=== PATIENT | female | born 1995 | race Caucasian/White ===

== ENCOUNTER 2024-06-26 19:27 | Inpatient (IN) ==
[2024-06-26 19:37] VITALS: BP 131/85; PULSE 78
[2024-06-26 19:55] VITALS: RESP 18; TEMP 98.4
--- NOTE | 2024-06-26 20:26 | Procedure Note ---
Procedure Note Date of Service June 26, 2024 monitoring was used to ensure reassuring status. The patient was verbally consented for placement of a la for cervical ripening, with discussion of risks, benefits and alternatives. All her questions were answered. Her legs were placed in lithotomy position. A lubricated, gloved hand was used to examine the cervix which was . A stylet was lubricated and inserted into a la catheter to give it stiffness, and the la catheter was then advanced along my fingers until it reached the external cervical os. The la was then fed forward off of the stylet, which was itself never moved beyond the external os, such that the soft catheter advanced into the uterine cavity outside of the amnion until the balloon was definitely above the internal cervical os. The balloon was then inflated using sterile water to 30cc volume. Gentle traction was used to seat the balloon downward against the internal cervical os. My hand and the stylet were removed from the vagina, and the la was secured to the patient's leg with a standard la holding sticker. There was no significant bleeding or leakage of fluid. The heart tones remained reassuring after this process, which the patient tolerated well. Coding Additional Codes Date of Service ([email or web address])
== END 2024-06-26 20:49 | disposition home or self-care (01) | DRG 833 ==
LOC: 4S1 19:27

== ENCOUNTER 2024-06-27 07:48 | Inpatient (IN) ==
[2024-06-27] MEDS ORDERED: OXYTOCIN 30 UNITS/NSS 30 UNITS/500 ML BAG IV PRN (07:59)
[2024-06-27] MEDS ORDERED: LIDOCAINE 1% LOCAL 20 ML VIAL INFIL PRN (07:59)
[2024-06-27] MEDS ORDERED: CALCIUM CARBONATE 500 MG CHEWABLE TAB PO PRN (07:59)
[2024-06-27 08:22] LABS: Hematocrit (blood only) 39.2 % (37.0-47.0); Hemoglobin 13.1 g/dl (12.0-16.0); Mean Corpuscular Hgb Conc 33.4 g/dL (32.0-36.0); Mean Corpuscular Volume 89.9 fL (80.0-100.0); Mean Platelet Volume 11.4 fL (9.4-12.4); Platelet Count 224 K/uL (130-400); RDW Coefficient of Variation 13.4 % (11.5-14.5); RDW Standard Deviation 43.8 fL (36.4-46.3); Red Blood Count 4.36 M/uL (4.20-5.40); White Blood Count 12.78 K/ul (4.8-10.8)
[2024-06-27] MEDS: LACTATED RINGER'S 1,000 ML IV PRN (08:30)
--- NOTE | 2024-06-27 08:31 | History & Physical Report ---
Date of Service June 27, 2024 Assessment & Plan (1) Encounter for induction of labor: Plan: la out Pitocin 30u in 500mL, 0.06u/hr for induction AROM when indicated Interested in epidural Monitor tracing, category I Admission and Anticipated Discharge Date Admission Date: June 27, 2024 History of Present Illness Chief Complaint: induction of labor Primary Care Provider: Kiley Manning MD Patient is a 28yo at 40w1d admitted for IOL for postdates. La bulb placed yesterday, fell out spontaneously this AM. Endorses feeling well but having about 5/10 abdominal pain which comes and goes with contractions. Denies recent fever, body aches, chills, headache, vision changes, dizziness, nausea/vomiting, CP, SOB, or LE pain, no LE numbness/tingling GBS neg, Rh+ Allergies Allergy/AdvReac Type Severity Reaction Status Date / Time No Known Allergies Allergy Verified 06/27/24 08:53 Home Medications Medication Instructions Recorded Confirmed Type breast pump #1 ea 06/09/24 06/21/24 Rx vits no.124-ferrous fum 1 tab PO DAILY 06/27/24 06/27/24 History 27 mg iron-folic acid 800 mcg tablet ( Vitamin) Patient History Medical History Seasonal allergies Varicella vaccine Surgical History [place] teeth extracted Family History Father Synovial sarcoma Denies family history of Ovarian cancer Prostate cancer Diabetes Myocardial infarction Breast cancer Colorectal cancer Hypertension Social History Smoking Status: Never smoker Second Hand Exposure: No; Do You Dip or Chew Tobacco: No; Hx Alcohol Use: Yes Alcohol Intake Frequency: Monthly or Less Hx Substance Use: No Preferred Language: Indian Portable Pinch Riveter Required: No Beliefs That Will Affect Care: None marital status: marital status details: Hank Barrett (27) [phone] Current Living Situation: Spouse Current Living Situation Comment: Lives with spouse, a dog current occupational status: employed current occupation: [employer] Other Information That Helps Us Care for You: No Feels Safe at Home: Yes Safety Concerns: Feels Safe At This Time caffeine: Yes (coffee in morning ) Dental Care, Regularly: Yes Physical Activity Frequency: 1-2 Times per Week Seatbelt Use: always Sunscreen Use: Yes Assistive Devices: None Review of Systems as above Physical Exam Physical Exam: General: A&Ox4, resting comfortably in NAD, nontoxic in appearance Skin: warm, dry, intact HEENT: NC/AT, anicteric sclerae, conjunctiva w/o injection, moist mucous membranes Heart: +s1/s2, RRR, no m/r/g Lungs: equal air entry b/l, clear to auscultation b/l, no wheeze, rales, or rhonchi Abd: +BS, gravid, mild tenderness to palpation, no erythema or lesions Cervical: 4/75/-2, mid, soft; est weight 7-8lbs Ext: no significant swelling, no erythema or tenderness to palpation; no cyanosis or clubbing Neuro: speech intact, no facial droop, moves all extremities on command : baseline HR 140, moderate variability, accelerations present, decelerations absent Results & Data Vital Signs (Past 12 Hours) Vital Signs Temp Pulse Resp BP O2 Del Method 06/27/24 07:58 37.0 C 81 20 121/74 Room Air 06/27/24 07:56 81 121/74 Supervising Physician Co-Signing Physician Notes Resident Physician Supervision Note: I interviewed and examined the patient. Discussed with Dr. Garcia and agree with findings and plan as documented in the note. Any exceptions or clarifications are listed here: Admitting for postdates induction. I removed bulb with a gentle tug. cx now very favorable. fetus category one. pitocin induction. arom when indicated, epidural on demand. Documented By: Ebony Nolen MD, FACOG Resident Activity Tracking Resident Involvement: Resident Care Provided Care Provided: OB Delivery
[2024-06-27] MEDS: OXYTOCIN 30 UNITS/NSS 30 UNITS/500 ML BAG IV PRN (08:33)
[2024-06-27] MEDS ORDERED: fentaNYL citrate PF 100 MCG/2 ML VIAL EPI PRN (11:45)
[2024-06-27] MEDS ORDERED: NALOXONE HCL 0.4 MG/1 ML VIAL/CARP IV PRN (11:45)
[2024-06-27] MEDS ORDERED: LIDOCAINE 2% MPF LOCAL 5 ML VIAL EPI PRN (11:45)
[2024-06-27] MEDS ORDERED: ePHEDrine sulfate 50 MG/ML AMP IV PRN (11:45)
[2024-06-27] MEDS ORDERED: ROPIVACAINE 0.5% PF 5 MG/ML 20 ML VIAL EPI PRN (11:45)
[2024-06-27] MEDS ORDERED: NALOXONE HCL 1 MG in SODIUM CHLORIDE 0.9% 1,000 ML IV PRN (11:45)
[2024-06-27] MEDS ORDERED: diphenhydrAMINE 50 MG/ML VIAL IV PRN (11:45)
[2024-06-27] MEDS ORDERED: BUPIVACAINE 0.25% PF 30 ML VIAL EPI PRN (11:45)
[2024-06-27] MEDS ORDERED: NALBUPHINE HCL INJ 10 MG/ML AMP IV PRN (11:45)
[2024-06-27] MEDS ORDERED: SODIUM CHLORIDE 0.9% PF INJ 10 ML VIAL EPI PRN (11:45)
--- NOTE | 2024-06-27 11:45 | Anesthesiology Consultation ---
Date of Service June 27, 2024 Assessment & Plan Chart Review Chart Review: Acceptable Risk for Labor Epidural Consults Requested none History Height/Weight Height: 5 ft 4 in Weight: 72.575 kg Allergies Allergy/AdvReac Type Severity Reaction Status Date / Time No Known Allergies Allergy Verified 06/27/24 08:53 Medications Home Medications Medication Instructions Recorded Confirmed Last Taken breast pump #1 ea 06/09/24 06/21/24 Unknown vits no.124-ferrous fum 1 tab PO DAILY 06/27/24 06/27/24 Unknown 27 mg iron-folic acid 800 mcg tablet ( Vitamin) Active Medications Generic Name Dose Route Start Last Admin Trade Name Freq PRN Reason Stop Dose Admin Oxytocin 30 units in 500 mls @ 3 mls/hr 06/27/24 07:59 06/27/24 09:30 Pitocin 30 Units/Nss IV 06/29/24 07:58 0.18 units/hr .Q24H PRN 3 mls/hr Labor Induction/Augmentation Titration Protocol 0.18 UNITS/HR Lactated Ringer's 1,000 mls @ 125 mls/hr 06/27/24 07:59 06/27/24 11:42 Lr IV 06/29/24 07:58 999 mls/hr .Q8H PRN Infusion L&D Protocol Protocol Past Medical History Medical History Seasonal allergies Varicella vaccine Past Family History Family History Father Synovial sarcoma Denies family history of Ovarian cancer Prostate cancer Diabetes Myocardial infarction Breast cancer Colorectal cancer Hypertension Past Surgical History Surgical History [place] teeth extracted Social History Smoking Status: Never smoker Do You Dip or Chew Tobacco: No Hx Alcohol Use: Yes Hx Substance Use: No Physical Exam Vital Signs Last Vital Signs Temp 36.9 C 06/27/24 10:32 Pulse 85 06/27/24 11:32 Resp 20 06/27/24 10:32 BP 120/80 06/27/24 11:32 O2 Del Method Room Air 06/27/24 07:58 Testing Laboratory Results 06/27/24 08:11
[2024-06-27] MEDS: fentANYL 2 MCG/ML BUPIVacaine 0.125%-NSS 100ML BAG ONE (12:14)
[2024-06-27] MEDS: LIDOCAINE 2%/EPINEPHRINE 1:200,000 20 ML PF ONE (12:20)
[2024-06-27] MEDS: SODIUM CHLORIDE 0.9% PF INJ 10 ML VIAL ONE (12:21)
[2024-06-27] MEDS: fentaNYL citrate PF 100 MCG/2 ML VIAL ONE (12:21)
[2024-06-27] MEDS: BUPIVACAINE 0.25% PF 30 ML VIAL ONE (12:21)
--- NOTE | 2024-06-27 13:26 | Labor Progress Brief Note ---
Date of Service June 27, 2024 Subjective comfortable with epidural. Assessment & Plan (1) Encounter for induction of labor: Plan continue current management. fetus category one. anticipate . Admission and Anticipated Discharge Date Admission Date: June 27, 2024 Physical Exam Physical Exam: cx--5/80/-2 arom--copious clear toco--q10-3 min, pit at 1, did have an epidsode of hyperstim at 3mu efm--130s with mod variability, accels to 150s Results & Data Vital Signs (Past 12 Hours) Vital Signs Temp Pulse Resp BP Pulse Ox O2 Del Method 06/27/24 13:21 71 110/74 06/27/24 13:19 70 99 06/27/24 13:14 66 100 06/27/24 13:09 65 99 06/27/24 13:05 61 102/64 06/27/24 13:04 64 99 06/27/24 12:59 58 L 99 06/27/24 12:54 54 L 99 06/27/24 12:50 60 99/58 L 06/27/24 12:49 62 99 06/27/24 12:44 59 L 98 06/27/24 12:39 67 98 06/27/24 12:34 98 06/27/24 12:34 54 L 06/27/24 12:34 64 105/60 06/27/24 12:32 65 101/61 06/27/24 12:29 60 99 06/27/24 12:27 65 18 112/66 06/27/24 12:24 68 99 06/27/24 12:20 69 110/64 06/27/24 12:19 69 100 06/27/24 12:18 67 110/61 06/27/24 12:16 67 113/59 L 06/27/24 12:14 68 115/57 L 100 06/27/24 12:12 72 131/64 06/27/24 12:09 81 100 06/27/24 11:32 85 120/80 06/27/24 10:32 36.9 C 60 20 109/73 06/27/24 09:30 71 115/77 06/27/24 07:58 37.0 C 81 20 121/74 Room Air 06/27/24 07:56 81 121/74 Coding Level of Care Code None Diagnoses Encounter for induction of labor Z34.90
--- NOTE | 2024-06-27 15:22 | Labor Progress Brief Note ---
Date of Service June 27, 2024 Subjective went into room for observed decel. Nursing had been straight cathing the patient and a decel to the 70s noted. This resolved with position change eventually to hands/knees, pit off, oxygen and one dose of terb. Assessment & Plan (1) Encounter for induction of labor: Plan Pit off and will now observe. If continues to make change without pitocin, will continue to monitor. If spaces and doesn't make change, may need to add back at a low dose. Fetus now reassuring. Admission and Anticipated Discharge Date Admission Date: June 27, 2024 Physical Exam Physical Exam: cx--7/100/0 toco--q2-3, pit at 5, may have had another bought of tachysystole during the time of the decel efm--had a 5 minute decel to the 70s, now resolved with 130s , min to mod variability Results & Data Vital Signs (Past 12 Hours) Vital Signs Temp Pulse Resp BP Pulse Ox O2 Del Method 06/27/24 15:17 90 129/85 06/27/24 15:14 91 H 100 06/27/24 15:09 99 H 100 06/27/24 15:05 56 L 115/76 06/27/24 15:04 56 L 98 06/27/24 14:59 61 97 06/27/24 14:54 66 97 06/27/24 14:49 97 06/27/24 14:49 58 L 06/27/24 14:49 65 102/65 06/27/24 14:44 62 96 06/27/24 14:39 97 06/27/24 14:39 62 06/27/24 14:39 72 96/57 L 06/27/24 14:34 71 97 06/27/24 14:29 66 97 06/27/24 14:24 69 97 06/27/24 14:20 62 103/68 06/27/24 14:19 59 L 97 06/27/24 14:14 60 97 06/27/24 14:09 61 98 06/27/24 14:04 60 104/67 97 06/27/24 13:59 65 97 06/27/24 13:54 60 99 06/27/24 13:50 64 106/66 06/27/24 13:49 58 L 99 06/27/24 13:44 58 L 99 06/27/24 13:39 67 99 06/27/24 13:35 67 103/67 06/27/24 13:34 70 100 06/27/24 13:29 73 99 06/27/24 13:24 60 99 06/27/24 13:21 36.9 C 71 18 110/74 06/27/24 13:19 70 99 06/27/24 13:14 66 100 06/27/24 13:09 65 99 06/27/24 13:05 61 102/64 06/27/24 13:04 64 99 06/27/24 12:59 58 L 99 06/27/24 12:54 54 L 99 06/27/24 12:50 60 99/58 L 06/27/24 12:49 62 99 06/27/24 12:44 59 L 98 06/27/24 12:39 67 98 06/27/24 12:34 98 06/27/24 12:34 54 L 06/27/24 12:34 64 105/60 06/27/24 12:32 65 101/61 06/27/24 12:29 60 99 06/27/24 12:27 65 18 112/66 06/27/24 12:24 68 99 06/27/24 12:20 69 110/64 06/27/24 12:19 69 100 06/27/24 12:18 67 110/61 06/27/24 12:16 67 113/59 L 06/27/24 12:14 68 115/57 L 100 06/27/24 12:12 72 131/64 06/27/24 12:09 81 100 06/27/24 11:32 85 120/80 06/27/24 10:32 36.9 C 60 20 109/73 06/27/24 09:30 71 115/77 06/27/24 07:58 37.0 C 81 20 121/74 Room Air 06/27/24 07:56 81 121/74 Coding Level of Care Code None Diagnoses Encounter for induction of labor Z34.90
[2024-06-27] MEDS: BUPIVACAINE 0.25% PF 30 ML VIAL EPI STA (15:32)
[2024-06-27] MEDS: fentaNYL citrate PF 100 MCG/2 ML VIAL EPI STA (15:32)
[2024-06-27] MEDS: LIDOCAINE 2%/EPINEPHRINE 1:200,000 20 ML PF EPI STA (15:33)
[2024-06-27] MEDS: SODIUM CHLORIDE 0.9% PF INJ 10 ML VIAL EPI STA (15:33)
[2024-06-27] MEDS: TERBUTALINE SULFATE 1 MG/ML VIAL ONE (15:42)
[2024-06-27] MEDS: ONDANSETRON INJ 2 MG/ML 2 ML VIAL IV PRN (18:30)
--- NOTE | 2024-06-27 19:34 | Labor Progress Brief Note ---
Date of Service June 27, 2024 Subjective comfortable Assessment & Plan (1) Encounter for induction of labor: Plan continue current management. fetus category one. Admission and Anticipated Discharge Date Admission Date: June 27, 2024 Physical Exam Physical Exam: /1 toco--q2-4, pit at 2 efm--140s with mod variability, accels present, no decels Results & Data Vital Signs (Past 12 Hours) Vital Signs Temp Pulse Resp BP Pulse Ox O2 Del Method 06/27/24 19:29 69 98 06/27/24 19:24 70 97 06/27/24 19:20 65 114/50 L 06/27/24 19:19 70 97 06/27/24 19:14 63 96 06/27/24 19:09 84 96 06/27/24 19:05 65 119/79 06/27/24 19:04 72 96 06/27/24 19:00 18 06/27/24 19:00 37.1 C 18 06/27/24 18:59 80 98 06/27/24 18:54 66 98 06/27/24 18:49 90 112/75 96 06/27/24 18:44 71 97 06/27/24 18:39 71 96 06/27/24 18:35 70 110/68 06/27/24 18:34 71 96 06/27/24 18:29 81 97 06/27/24 18:24 83 96 06/27/24 18:19 79 113/73 96 06/27/24 18:14 80 96 06/27/24 18:09 77 97 06/27/24 18:04 96 06/27/24 18:04 74 06/27/24 18:04 73 110/70 06/27/24 17:59 76 97 06/27/24 17:54 70 98 06/27/24 17:49 80 118/68 98 06/27/24 17:44 72 98 06/27/24 17:39 70 98 06/27/24 17:35 73 114/62 06/27/24 17:34 73 98 06/27/24 17:30 18 06/27/24 17:30 37.1 C 18 06/27/24 17:29 69 97 06/27/24 17:24 78 97 06/27/24 17:20 71 100/56 L 06/27/24 17:19 76 97 06/27/24 17:14 89 96 06/27/24 17:09 75 98 06/27/24 17:05 75 95/53 L 06/27/24 17:04 78 97 06/27/24 16:59 77 97 06/27/24 16:54 71 96 06/27/24 16:51 76 101/55 L 06/27/24 16:49 74 98 06/27/24 16:44 79 98 06/27/24 16:39 77 98 06/27/24 16:36 81 16 117/70 06/27/24 16:34 78 97 06/27/24 16:29 80 98 06/27/24 16:24 83 97 06/27/24 16:21 83 117/67 06/27/24 16:19 83 98 06/27/24 16:14 84 98 06/27/24 16:09 87 98 06/27/24 16:04 89 113/67 97 06/27/24 15:59 89 99 06/27/24 15:54 78 100 06/27/24 15:50 82 114/72 06/27/24 15:49 82 97 06/27/24 15:44 86 99 06/27/24 15:39 76 99 06/27/24 15:37 18 06/27/24 15:37 36.8 C 18 06/27/24 15:34 77 119/69 99 06/27/24 15:29 81 99 06/27/24 15:24 79 100 06/27/24 15:19 81 100 06/27/24 15:17 90 129/85 06/27/24 15:14 91 H 100 06/27/24 15:09 99 H 100 06/27/24 15:05 56 L 115/76 06/27/24 15:04 56 L 98 06/27/24 14:59 61 97 06/27/24 14:54 66 97 06/27/24 14:49 97 06/27/24 14:49 58 L 06/27/24 14:49 65 102/65 06/27/24 14:44 62 96 06/27/24 14:39 97 06/27/24 14:39 62 06/27/24 14:39 72 96/57 L 06/27/24 14:34 71 97 06/27/24 14:29 66 97 06/27/24 14:24 69 97 06/27/24 14:20 62 103/68 06/27/24 14:19 59 L 97 06/27/24 14:14 60 97 06/27/24 14:09 61 98 06/27/24 14:04 60 104/67 97 06/27/24 13:59 65 97 06/27/24 13:54 60 99 06/27/24 13:50 64 106/66 06/27/24 13:49 58 L 99 06/27/24 13:44 58 L 99 06/27/24 13:39 67 99 06/27/24 13:35 67 103/67 06/27/24 13:34 70 100 06/27/24 13:29 73 99 06/27/24 13:24 60 99 06/27/24 13:21 36.9 C 71 18 110/74 06/27/24 13:19 70 99 06/27/24 13:14 66 100 06/27/24 13:09 65 99 06/27/24 13:05 61 102/64 06/27/24 13:04 64 99 06/27/24 12:59 58 L 99 06/27/24 12:54 54 L 99 06/27/24 12:50 60 99/58 L 06/27/24 12:49 62 99 06/27/24 12:44 59 L 98 06/27/24 12:39 67 98 06/27/24 12:34 98 06/27/24 12:34 54 L 06/27/24 12:34 64 105/60 06/27/24 12:32 65 101/61 06/27/24 12:29 60 99 06/27/24 12:27 65 18 112/66 06/27/24 12:24 68 99 06/27/24 12:20 69 110/64 06/27/24 12:19 69 100 06/27/24 12:18 67 110/61 06/27/24 12:16 67 113/59 L 06/27/24 12:14 68 115/57 L 100 06/27/24 12:12 72 131/64 06/27/24 12:09 81 100 06/27/24 11:32 85 120/80 06/27/24 10:32 36.9 C 60 20 109/73 06/27/24 09:30 71 115/77 06/27/24 07:58 37.0 C 81 20 121/74 Room Air 06/27/24 07:56 81 121/74 Coding Level of Care Code None Diagnoses Encounter for induction of labor Z34.90
[2024-06-27] MEDS: fentANYL 2 MCG/ML BUPIVacaine 0.125%-NSS 100ML BAG EPI PRN (19:51)
--- NOTE | 2024-06-27 22:28 | Labor Progress Brief Note ---
Date of Service June 27, 2024 Subjective Feeling pressure in her bottom Assessment & Plan (1) Encounter for induction of labor: Plan Labor down for 30 min then push. fetus reassuring. anticipate . Admission and Anticipated Discharge Date Admission Date: June 27, 2024 Physical Exam Physical Exam: cx--c/c/+1 toco--q1-3min efm--140s with mod variability, accels present, +scalp stim Results & Data Vital Signs (Past 12 Hours) Vital Signs Temp Pulse Resp BP Pulse Ox 06/27/24 22:24 67 97 06/27/24 22:19 96 06/27/24 22:19 58 L 06/27/24 22:19 70 115/78 06/27/24 22:14 65 98 06/27/24 22:09 65 97 06/27/24 22:06 65 121/76 06/27/24 22:04 63 96 06/27/24 21:59 68 96 06/27/24 21:54 62 97 06/27/24 21:50 63 122/79 06/27/24 21:49 59 L 98 06/27/24 21:44 66 98 06/27/24 21:39 64 97 06/27/24 21:34 62 117/85 97 06/27/24 21:30 16 06/27/24 21:30 16 06/27/24 21:29 63 97 06/27/24 21:24 61 97 06/27/24 21:20 65 125/89 06/27/24 21:19 62 97 06/27/24 21:14 64 96 06/27/24 21:09 67 97 06/27/24 21:07 63 94 06/27/24 21:05 61 119/76 06/27/24 21:04 63 96 06/27/24 21:00 16 06/27/24 21:00 36.7 C 16 06/27/24 20:59 66 97 06/27/24 20:54 62 97 06/27/24 20:51 69 118/79 06/27/24 20:49 62 97 06/27/24 20:44 68 97 06/27/24 20:39 59 L 97 06/27/24 20:35 56 L 130/71 06/27/24 20:34 57 L 97 06/27/24 20:30 16 06/27/24 20:30 16 06/27/24 20:29 58 L 96 06/27/24 20:24 61 96 06/27/24 20:21 61 111/66 06/27/24 20:19 62 97 06/27/24 20:14 64 97 06/27/24 20:09 65 98 06/27/24 20:05 67 124/79 06/27/24 20:04 64 98 06/27/24 20:00 18 06/27/24 20:00 18 06/27/24 19:59 64 97 06/27/24 19:54 74 97 06/27/24 19:50 69 109/68 06/27/24 19:49 69 95 06/27/24 19:44 69 96 06/27/24 19:39 69 97 06/27/24 19:35 69 102/59 L 06/27/24 19:34 63 96 06/27/24 19:29 69 98 06/27/24 19:24 70 97 06/27/24 19:20 65 114/50 L 06/27/24 19:19 70 97 06/27/24 19:14 63 96 06/27/24 19:09 84 96 06/27/24 19:05 65 119/79 06/27/24 19:04 72 96 06/27/24 19:00 18 06/27/24 19:00 37.1 C 18 06/27/24 18:59 80 98 06/27/24 18:54 66 98 06/27/24 18:49 90 112/75 96 06/27/24 18:44 71 97 06/27/24 18:39 71 96 06/27/24 18:35 70 110/68 06/27/24 18:34 71 96 06/27/24 18:29 81 97 06/27/24 18:24 83 96 06/27/24 18:19 79 113/73 96 06/27/24 18:14 80 96 06/27/24 18:09 77 97 06/27/24 18:04 96 06/27/24 18:04 74 06/27/24 18:04 73 110/70 06/27/24 17:59 76 97 06/27/24 17:54 70 98 06/27/24 17:49 80 118/68 98 06/27/24 17:44 72 98 06/27/24 17:39 70 98 06/27/24 17:35 73 114/62 06/27/24 17:34 73 98 06/27/24 17:30 18 06/27/24 17:30 37.1 C 18 06/27/24 17:29 69 97 06/27/24 17:24 78 97 06/27/24 17:20 71 100/56 L 06/27/24 17:19 76 97 06/27/24 17:14 89 96 06/27/24 17:09 75 98 06/27/24 17:05 75 95/53 L 06/27/24 17:04 78 97 06/27/24 16:59 77 97 06/27/24 16:54 71 96 06/27/24 16:51 76 101/55 L 06/27/24 16:49 74 98 06/27/24 16:44 79 98 06/27/24 16:39 77 98 06/27/24 16:36 81 16 117/70 06/27/24 16:34 78 97 06/27/24 16:29 80 98 06/27/24 16:24 83 97 06/27/24 16:21 83 117/67 06/27/24 16:19 83 98 06/27/24 16:14 84 98 06/27/24 16:09 87 98 06/27/24 16:04 89 113/67 97 06/27/24 15:59 89 99 06/27/24 15:54 78 100 06/27/24 15:50 82 114/72 06/27/24 15:49 82 97 06/27/24 15:44 86 99 06/27/24 15:39 76 99 06/27/24 15:37 18 06/27/24 15:37 36.8 C 18 06/27/24 15:34 77 119/69 99 06/27/24 15:29 81 99 06/27/24 15:24 79 100 06/27/24 15:19 81 100 06/27/24 15:17 90 129/85 06/27/24 15:14 91 H 100 06/27/24 15:09 99 H 100 06/27/24 15:05 56 L 115/76 06/27/24 15:04 56 L 98 06/27/24 14:59 61 97 06/27/24 14:54 66 97 06/27/24 14:49 97 06/27/24 14:49 58 L 06/27/24 14:49 65 102/65 06/27/24 14:44 62 96 06/27/24 14:39 97 06/27/24 14:39 62 06/27/24 14:39 72 96/57 L 06/27/24 14:34 71 97 06/27/24 14:29 66 97 06/27/24 14:24 69 97 06/27/24 14:20 62 103/68 06/27/24 14:19 59 L 97 06/27/24 14:14 60 97 06/27/24 14:09 61 98 06/27/24 14:04 60 104/67 97 06/27/24 13:59 65 97 06/27/24 13:54 60 99 06/27/24 13:50 64 106/66 06/27/24 13:49 58 L 99 06/27/24 13:44 58 L 99 06/27/24 13:39 67 99 06/27/24 13:35 67 103/67 06/27/24 13:34 70 100 06/27/24 13:29 73 99 06/27/24 13:24 60 99 06/27/24 13:21 36.9 C 71 18 110/74 06/27/24 13:19 70 99 06/27/24 13:14 66 100 06/27/24 13:09 65 99 06/27/24 13:05 61 102/64 06/27/24 13:04 64 99 06/27/24 12:59 58 L 99 06/27/24 12:54 54 L 99 06/27/24 12:50 60 99/58 L 06/27/24 12:49 62 99 06/27/24 12:44 59 L 98 06/27/24 12:39 67 98 06/27/24 12:34 98 06/27/24 12:34 54 L 06/27/24 12:34 64 105/60 06/27/24 12:32 65 101/61 06/27/24 12:29 60 99 06/27/24 12:27 65 18 112/66 06/27/24 12:24 68 99 06/27/24 12:20 69 110/64 06/27/24 12:19 69 100 06/27/24 12:18 67 110/61 06/27/24 12:16 67 113/59 L 06/27/24 12:14 68 115/57 L 100 06/27/24 12:12 72 131/64 06/27/24 12:09 81 100 06/27/24 11:32 85 120/80 06/27/24 10:32 36.9 C 60 20 109/73 Coding Level of Care Code None Diagnoses Encounter for induction of labor Z34.90
--- NOTE | 2024-06-28 00:17 | Delivery Summary ---
Vaginal Delivery Summary Date of Service June 28, 2024 Vaginal Delivery Summary and 2nd Degree LAC Pre-operative Diagnosis: at 40 weeks Post-operative Diagnosis: same thin meconium Procedure: la bulb pitocin iol epidural arom second degree laceration and repair QBL: 102cc Anesthesia: epidural Procedure: The patient presented to labor and delivery for postdates iol. Had la bulb placed the night before and removed on admission. Pitocin used for iol. Got epidural and then arom for clear fluid initially. She progressed to c/c/+1 station. There was thin mec noted toward the end of labor. The patient pushed for approximately an hour to deliver a viable male infant in camden position. The nose and mouth were bulb suctioned on the perineum and the rest of the infant was then delivered without difficulty. The baby was vigorous. The nose and mouth were again bulb suctioned and the infant was placed in the maternal abdomen for drying and attention. Cord was clamped and cut at one minute of life. Cord blood and segment obtained. Placenta delivered spontaneous, intact with a three vessel cord. Cervix/sulci/rectum were intact. A second degree perineal laceration was repaired in the normal standard fashion. Hemostasis obtained with dilute pitocin and fundal massage. Apgars were 8/8. Mother and baby doing well at the end of the delivery. [facility] [place] Vaginal Delivery Charge Delivery Type Details: and 2nd Degree LAC
[2024-06-28] MEDS ORDERED: oxyCODONE/ACETAMINOPHEN 5mg/325mg TAB PO PRN (01:00)
[2024-06-28] MEDS ORDERED: OXYTOCIN 30 UNITS/NSS 30 UNITS/500 ML BAG IV PRN (01:00)
[2024-06-28] MEDS ORDERED: HYDROCORTISONE ACETATE 25 MG SUPP PR PRN (01:00)
[2024-06-28] MEDS ORDERED: bisacodyL 10 MG SUPP PR PRN (01:00)
[2024-06-28] MEDS ORDERED: ACETAMINOPHEN 325 MG TAB PO PRN (01:00)
[2024-06-28] MEDS: ePHEDrine sulfate 50 MG/ML AMP ONE (01:14)
[2024-06-28] MEDS: DIPHTHER/TETAN/PERTUS Vaccine (Tdap, Adol/Adult) 0.5mL IM ONE (01:14)
[2024-06-28] MEDS: IBUPROFEN 600 MG TAB PO PRN (03:25)
[2024-06-28] MEDS: BENZOCAINE 20% SPRY 85 APPLN/85 GM CAN EXT PRN (03:26)
--- NOTE | 2024-06-28 06:11 | Obstetrical Progress Note ---
Date of Service <Marco Garcia DO - Last Filed: 06/28/24 07:26> June 28, 2024 Assessment & Plan <Marco Garcia DO - Last Filed: 06/28/24 07:26> (1) state: Patient is a 28yo pp day 1 s/p . Feels well today, VSS this AM. Continue care Ambulation and as tolerated Pain control w/ ibuprofen, benzocaine, tylenol, Percocet as needed Hgb: 13.1 yesterday (06/27/24) Home: at least tomorrow Follow up with Dr. Nolen in 6wks (2) Perineal laceration during delivery: 2nd degree perineal lac during delivery repaired in the normal standard fashion monitor for signs of infection Perineal laceration degree: second degree Qualified Code(s): O70.1 - Second degree perineal laceration during delivery (3) Diastasis recti: new since current , just noticed today as it is pp day 1 monitor for pain and continued constipation <Ebony Nolen MD, FACOG - Last Filed: 06/28/24 07:29> (1) state: (2) Perineal laceration during delivery: (3) Diastasis recti: Subjective <Marco Garcia DO - Last Filed: 06/28/24 07:26> Patient is a 28yo pp day 1 s/p complicated by 2nd deg perineal laceration during delivery. Ambulating: yes Voiding: urinating, no BM Passing gas: not yet Diet tolerance: yes but only a little, ob reg Lochia: decreasing Feeding type: breast, bottle if necessary Current pain: mild vulval pain Feeling well this morning, resting comfortably in NAD. Denies fever, body aches, chills, headache, vision changes, chest pain, SOB, LE pain/swelling, or LE numbness/tingling. Review of Systems as above Physical Exam <Marco Garcia DO - Last Filed: 06/28/24 07:26> General: A&Ox4, resting comfortably in NAD, nontoxic in appearance Skin: warm, dry, intact HEENT: NC/AT, anicteric sclerae, conjunctive w/o injection, moist mucous membranes Heart: +s1/s2, RRR, no murmurs, rubs, or gallops Lungs: equal air entry b/l, clear to auscultation, no wheeze, rales, or rhonchi Abd: +BS hypoactive, diastasis recti nontender to palpation, uterine fundus firm 1 fingerwidth below level of umbilicus, nontender to palpation Ext: no significant erythema/swelling, no tenderness to palpation, negative Roberto's, no clubbing/cyanosis Neuro: speech intact, no facial droop, moves all extremities Results & Data <Marco Garcia DO - Last Filed: 06/28/24 07:26> Vital Signs (Past 12 Hours) Vital Signs Temp Pulse Pulse Resp BP BP Pulse Ox 06/28/24 03:10 37.3 C 72 18 102/66 96 06/28/24 02:16 67 111/63 06/28/24 01:23 68 100/62 06/28/24 00:34 65 109/56 L 06/28/24 00:20 75 118/59 L 06/28/24 00:19 76 96 06/28/24 00:14 73 97 06/28/24 00:09 67 98 06/28/24 00:04 96 06/28/24 00:04 65 06/28/24 00:04 68 108/57 L 06/27/24 23:59 82 96 06/27/24 23:54 108 H 97 06/27/24 23:50 96 H 99/45 L 06/27/24 23:49 92 H 96 06/27/24 23:44 126 H 98 06/27/24 23:39 104 H 97 06/27/24 23:34 78 116/61 97 06/27/24 23:30 20 06/27/24 23:30 20 06/27/24 23:29 79 97 06/27/24 23:24 83 98 06/27/24 23:20 76 117/57 L 06/27/24 23:19 101 H 98 06/27/24 23:14 81 96 06/27/24 23:09 72 98 06/27/24 23:05 72 126/81 06/27/24 23:04 75 97 06/27/24 23:00 18 06/27/24 23:00 36.9 C 18 06/27/24 22:59 62 97 06/27/24 22:54 65 97 06/27/24 22:50 69 122/77 06/27/24 22:49 81 96 06/27/24 22:44 74 98 06/27/24 22:39 71 97 06/27/24 22:34 69 114/74 98 06/27/24 22:30 18 06/27/24 22:30 18 06/27/24 22:29 76 98 06/27/24 22:24 67 97 06/27/24 22:19 96 06/27/24 22:19 58 L 06/27/24 22:19 70 115/78 06/27/24 22:14 65 98 06/27/24 22:09 65 97 06/27/24 22:06 65 121/76 06/27/24 22:04 63 96 06/27/24 21:59 68 96 06/27/24 21:54 62 97 06/27/24 21:50 63 122/79 06/27/24 21:49 59 L 98 06/27/24 21:44 66 98 06/27/24 21:39 64 97 06/27/24 21:34 62 117/85 97 06/27/24 21:30 16 06/27/24 21:30 16 06/27/24 21:29 63 97 06/27/24 21:24 61 97 06/27/24 21:20 65 125/89 06/27/24 21:19 62 97 06/27/24 21:14 64 96 06/27/24 21:09 67 97 06/27/24 21:07 63 94 06/27/24 21:05 61 119/76 06/27/24 21:04 63 96 06/27/24 21:00 16 06/27/24 21:00 36.7 C 16 06/27/24 20:59 66 97 06/27/24 20:54 62 97 06/27/24 20:51 69 118/79 06/27/24 20:49 62 97 06/27/24 20:44 68 97 06/27/24 20:39 59 L 97 06/27/24 20:35 56 L 130/71 06/27/24 20:34 57 L 97 06/27/24 20:30 16 06/27/24 20:30 16 06/27/24 20:29 58 L 96 06/27/24 20:24 61 96 06/27/24 20:21 61 111/66 06/27/24 20:19 62 97 06/27/24 20:14 64 97 06/27/24 20:09 65 98 06/27/24 20:05 67 124/79 06/27/24 20:04 64 98 06/27/24 20:00 18 06/27/24 20:00 18 06/27/24 19:59 64 97 06/27/24 19:54 74 97 06/27/24 19:50 69 109/68 06/27/24 19:49 69 95 06/27/24 19:44 69 96 06/27/24 19:39 69 97 06/27/24 19:35 69 102/59 L 06/27/24 19:34 63 96 06/27/24 19:29 69 98 06/27/24 19:24 70 97 06/27/24 19:20 65 114/50 L 06/27/24 19:19 70 97 06/27/24 19:14 63 96 06/27/24 19:09 84 96 06/27/24 19:05 65 119/79 06/27/24 19:04 72 96 06/27/24 19:00 18 06/27/24 19:00 37.1 C 18 06/27/24 18:59 80 98 06/27/24 18:54 66 98 06/27/24 18:49 90 112/75 96 06/27/24 18:44 71 97 06/27/24 18:39 71 96 06/27/24 18:35 70 110/68 06/27/24 18:34 71 96 06/27/24 18:29 81 97 06/27/24 18:24 83 96 06/27/24 18:19 79 113/73 96 06/27/24 18:14 80 96 O2 Del Method 06/28/24 03:10 Room Air 06/28/24 02:16 06/28/24 01:23 06/28/24 00:34 06/28/24 00:20 06/28/24 00:19 06/28/24 00:14 06/28/24 00:09 06/28/24 00:04 06/28/24 00:04 06/28/24 00:04 06/27/24 23:59 06/27/24 23:54 06/27/24 23:50 06/27/24 23:49 06/27/24 23:44 06/27/24 23:39 06/27/24 23:34 06/27/24 23:30 06/27/24 23:30 06/27/24 23:29 06/27/24 23:24 06/27/24 23:20 06/27/24 23:19 06/27/24 23:14 06/27/24 23:09 06/27/24 23:05 06/27/24 23:04 06/27/24 23:00 06/27/24 23:00 06/27/24 22:59 06/27/24 22:54 06/27/24 22:50 06/27/24 22:49 06/27/24 22:44 06/27/24 22:39 06/27/24 22:34 06/27/24 22:30 06/27/24 22:30 06/27/24 22:29 06/27/24 22:24 06/27/24 22:19 06/27/24 22:19 06/27/24 22:19 06/27/24 22:14 06/27/24 22:09 06/27/24 22:06 06/27/24 22:04 06/27/24 21:59 06/27/24 21:54 06/27/24 21:50 06/27/24 21:49 06/27/24 21:44 06/27/24 21:39 06/27/24 21:34 06/27/24 21:30 06/27/24 21:30 06/27/24 21:29 06/27/24 21:24 06/27/24 21:20 06/27/24 21:19 06/27/24 21:14 06/27/24 21:09 06/27/24 21:07 06/27/24 21:05 06/27/24 21:04 06/27/24 21:00 06/27/24 21:00 06/27/24 20:59 06/27/24 20:54 06/27/24 20:51 06/27/24 20:49 06/27/24 20:44 06/27/24 20:39 06/27/24 20:35 06/27/24 20:34 06/27/24 20:30 06/27/24 20:30 06/27/24 20:29 06/27/24 20:24 06/27/24 20:21 06/27/24 20:19 06/27/24 20:14 06/27/24 20:09 06/27/24 20:05 06/27/24 20:04 06/27/24 20:00 06/27/24 20:00 06/27/24 19:59 06/27/24 19:54 06/27/24 19:50 06/27/24 19:49 06/27/24 19:44 06/27/24 19:39 06/27/24 19:35 06/27/24 19:34 06/27/24 19:29 06/27/24 19:24 06/27/24 19:20 06/27/24 19:19 06/27/24 19:14 06/27/24 19:09 06/27/24 19:05 06/27/24 19:04 06/27/24 19:00 06/27/24 19:00 06/27/24 18:59 06/27/24 18:54 06/27/24 18:49 06/27/24 18:44 06/27/24 18:39 06/27/24 18:35 06/27/24 18:34 06/27/24 18:29 06/27/24 18:24 06/27/24 18:19 06/27/24 18:14 Supervising Physician <Ebony Nolen MD, FACOG - Last Filed: 06/28/24 07:29> Co-Signing Physician Notes Resident Physician Supervision Note: I interviewed and examined the patient. Discussed with Dr. Garcia and agree with findings and plan as documented in the note. Any exceptions or clarifications are listed here: Doing well. Routine ppd1 care. Documented By: Ebony Nolen MD, FACOG Resident Activity Tracking <Marco Garcia DO - Last Filed: 06/28/24 07:26> Resident Involvement: Resident Care Provided Care Provided: OB Delivery
[2024-06-28 07:04] LABS: Hematocrit (blood only) 33.7 % (37.0-47.0); Hemoglobin 11.2 g/dl (12.0-16.0)
[2024-06-28] MEDS: PRENATAL VITAMIN 1 TAB PO SCH (07:38)
[2024-06-28] MEDS: DOCUSATE SODIUM 100 MG CAP PO SCH (07:38)
--- NOTE | 2024-06-28 09:33 | Anesthesia Procedure Note ---
Date of Service June 28, 2024 Anesthesia Post Epidural Note Vital Signs Vital Signs: Temp Pulse Resp BP Pulse Ox O2 Del Method 36.7 C 59 L 18 96/63 L 96 Room Air 06/28/24 07:30 06/28/24 07:30 06/28/24 07:30 06/28/24 07:30 06/28/24 03:10 06/28/24 07:30 Pain Intensity Back: Pain Intensity: 8 Bilateral Lower Abdomen: Pain Intensity: 2 Perineal: Pain Intensity: 4 Notes Mental Status: alert / awake / arousable and participated in evaluation Nausea / Vomiting: adequately controlled Pain: adequately controlled Airway Patency, RR, SpO2: stable & adequate BP & HR: stable & adequate Hydration State: stable & adequate Neuraxial Anesthesia: was administered and sensory block resolved Anesthetic Complications: no major complications apparent and Pt Satisfied with anesthetic care Epidural: Removed without complications and With tip intact
--- NOTE | 2024-06-29 06:11 | Obstetrical Progress Note ---
Date of Service <Marco RejiIhsan Garcia DO - Last Filed: 06/29/24 07:12> June 29, 2024 Assessment & Plan <Marco RejiIhsan Garcia DO - Last Filed: 06/29/24 07:12> (1) state: Patient is a 28yo pp day 2 s/p . Feels well today, VSS this AM. Continue care Ambulation and as tolerated Pain control as needed Hgb: 13.1 -> 11.2, asymptomatic Home: today or next per baby doing well per peds Follow up with Dr. Nolen in 6wks (2) Perineal laceration during delivery: 2nd degree perineal lac during delivery repaired in the normal standard fashion monitor for signs of infection Perineal laceration degree: second degree Qualified Code(s): O70.1 - Second degree perineal laceration during delivery (3) Diastasis recti: new since current , just noticed yesterday pp day 1 monitor for pain and continued constipation <Rasheeda Stephens MD, FACOG - Last Filed: 06/29/24 09:52> (1) state: (2) Perineal laceration during delivery: (3) Diastasis recti: Subjective <Marco Garcia DO - Last Filed: 06/29/24 07:12> Patient is a 28yo pp day 2 s/p complicated by 2nd deg perineal laceration during delivery. Ambulating: yes Voiding: urinating, no BM Passing gas: not yet Diet tolerance: yes, OB reg Lochia: decreasing Feeding type: breast, bottle if necessary Current pain: mild vulval pain Feeling well this morning, resting comfortably in NAD. Denies fever, body aches, chills, headache, vision changes, chest pain, SOB, LE pain/swelling, or LE numbness/tingling. Review of Systems as above Physical Exam <Marco Garcia DO - Last Filed: 06/29/24 07:12> General: A&Ox4, resting comfortably in NAD, nontoxic in appearance Skin: warm, dry, intact HEENT: NC/AT, anicteric sclerae, conjunctive w/o injection, moist mucous membranes Heart: +s1/s2, RRR, no murmurs, rubs, or gallops Lungs: equal air entry b/l, clear to auscultation, no wheeze, rales, or rhonchi Abd: deferred as pt was at time of encounter; yesterday: +BS hypoactive, diastasis recti nontender to palpation, uterine fundus firm 1 fingerwidth below level of umbilicus, nontender to palpation Ext: no significant erythema/swelling, no tenderness to palpation, negative Roberto's, no clubbing/cyanosis Neuro: speech intact, no facial droop, moves all extremities Results & Data <Marco aGrcia DO - Last Filed: 06/29/24 07:12> Vital Signs (Past 12 Hours) Vital Signs Temp Pulse Resp BP Pulse Ox O2 Del Method 06/28/24 23:43 36.6 C 71 18 100/67 96 Room Air 06/28/24 20:15 36.8 C 77 20 107/66 97 Room Air Supervising Physician <Rasheeda Stephens MD, FACOG - Last Filed: 06/29/24 09:52> Co-Signing Physician Notes Resident Physician Supervision Note: I interviewed and examined the patient. Discussed with Dr. Garcia and agree with findings and plan as documented in the note. Any exceptions or clarifications are listed here: [None] Documented By: Rasheeda Stephens MD, FACOG Resident Activity Tracking <Marco Garcia DO - Last Filed: 06/29/24 07:12> Resident Involvement: Resident Care Provided Care Provided: OB Delivery
[2024-06-29 06:30] VITALS: BP 107/71; RESP 16; TEMP 97.3; O2SAT 97
[2024-06-29 11:45] VITALS: PULSE 71
[2024-06-29] MEDS ORDERED: bisacodyL 5 MG TABEC PO SCH (20:00)
== END 2024-06-29 12:00 | disposition home or self-care (01) | DRG 807 ==
LOC: 4S1 07:48 → 4E2 06-28 03:12